=== PATIENT | male | born 1955 | race Caucasian/White ===

== ENCOUNTER → 2019-09-10 06:27 | Outpatient (CLI) | payer OTHER, SELFPAY ==
--- NOTE | 2019-09-10 | DI.MRI.S_ITS ---
PROCEDURE: MR HEAD/BRAIN WO/W CON INDICATIONS: Unspecified dementia without behavioral disturbanc TECHNIQUE: Noncontrast axial T1 spin echo, axial T2 fast spin echo, sagittal and axial FLAIR, coronal T2 fast spin echo, axial gradient echo, axial diffusion and ADC through the brain. After the administration of contrast, axial and coronal 3D VIBE or T1 spin echo with fat saturation through the brain. COMPARISON: None. FINDINGS: Image quality: Excellent. CSF Spaces: Basal cisterns are patent. No extra-axial fluid collections. Ventricles are normal in size and shape. Brain: No midline shift. No intracranial bleeds or masses. There is mild, diffuse cerebral volume loss. There are mild periventricular and subcortical white matter chronic microvascular ischemic changes. No abnormal intracranial enhancement. The brainstem appears normal. Diffusion-weighted images demonstrate no acute ischemic insults. No chronic ischemic insults. Normal intravascular flow voids are present. Skull and face: Calvarial marrow is normal in signal. Orbits appear normal. Sinuses: Sinuses and mastoids appear clear. IMPRESSION: 1. No acute intracranial disease process. 2. No abnormal intracranial mass or suspicious postcontrast enhancement. 3. No areas of acute or chronic infarction. 4. Mild, diffuse cerebral volume loss. 5. Mild periventricular and subcortical white matter chronic microvascular ischemic changes. Dictated by: Valerie Mccall MD, PhD on 09/10/2019 at 9:41 Approved by: Valerie Mccall MD, PhD on 09/10/2019 at 9:47
== END ==
PROVIDERS: PCP Family Medicine; Visit Provider Family Medicine
DX: F03.90 Unspecified dementia, unspecified severity, without behavioral disturbance, psychotic disturbance, mood disturbance, and anxiety (principal)
CPT/HCPCS: 70553; A9579